=== PATIENT | female | born 1965 | race Asian ===

== ENCOUNTER 2018-11-16 21:06 | Emergency (ER) | payer OTHER ==
[~2018-11-16] VITALS: Ht 162.6 cm; Wt 65.9 kg
--- NOTE | 2018-11-16 21:27 | NUR ---
SHERLY CRAMER FOR TRIAGE @ [phone]
--- NOTE | 2018-11-16 21:43 | NUR ---
NO ANSWER FOR TRIAGE @ [id number]
[2018-11-16] MEDS ORDERED: KETOROLAC 30 MG/1 ML IM ONE (22:30)
[2018-11-16] MEDS ORDERED: ONDANSETRON ODT 4 MG PO ONE (22:30)
[2018-11-16] MEDS ORDERED: KETOROLAC 30 MG/1 ML ONE (22:39)
[2018-11-16] MEDS ORDERED: ONDANSETRON ODT 4 MG ONE (22:39)
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
[2018-11-16] MEDS ORDERED: DIAZEPAM 5 MG TABLET ONE (23:21)
--- NOTE | 2018-11-16 23:23 | NUR ---
PT BACK FROM RADIOLOGY. MEDICATED FOR CONTINUED PAIN. CALL LIGHT IN REACH. AWAITING TEST RESULTS.
[2018-11-16] MEDS ORDERED: DIAZEPAM 5 MG TABLET PO ONE (23:30)
[2018-11-17 00:19] VITALS: BP 136/86
== END 2018-11-17 00:22 | disposition home or self-care (01) ==
LOC: ED 23:59
DX: S16.1XXA Strain of muscle, fascia and tendon at neck level, initial encounter (principal); S39.012A Strain of muscle, fascia and tendon of lower back, initial encounter; S29.012A Strain of muscle and tendon of back wall of thorax, initial encounter; G89.11 Acute pain due to trauma; V49.09XA Driver injured in collision with other motor vehicles in nontraffic accident, initial encounter; Y93.89 Activity, other specified; Y92.89 Other specified places as the place of occurrence of the external cause; Y99.8 Other external cause status
CPT/HCPCS: 71046; 72050; 72110; 96372; 99283; J1885; Q0162